=== PATIENT | female | born 1985 | race Caucasian/White ===

== ENCOUNTER 2020-10-09 17:42 | Observation (INO) ==
[2020-10-09] MEDS ORDERED: Isovue-370 500 ML BOTTLE IVP ONE (19:40)
[2020-10-09] MEDS ORDERED: *HR* FentaNYL (PF) 100 MCG/2 ML VIAL IVP ONE (19:40)
[2020-10-09] MEDS ORDERED: 0.9 % Sodium Chloride 1,000 ML IVC STA (19:40)
[2020-10-09] MEDS ORDERED: Ondansetron 4 MG/2 ML VIAL IVP STA ×2 (19:40→22:45)
[2020-10-09] MEDS ORDERED: Pantoprazole 40 MG VIAL IVP ONE (19:58)
[2020-10-09 20:42] LABS: Basophils # 0.1 K/mcL (0.0-0.2); Basophils % 0.6 %; Eosinophils # 0.2 K/mcL (0.0-0.6); Eosinophils % 1.4 %; Hematocrit 47.3 % (35.3-44.9); Hemoglobin 16.2 g/dL (11.5-15.4); Immature Granulocytes % 0.2 % (0-4); Lymphocytes # 3.3 K/mcL (0.6-4.6); Lymphocytes % 27.1 %; Mean Corpuscular HGB Conc 34.2 g/dL (31.6-35.5); Mean Corpuscular Volume 93.3 fL (83.0-100.0); Mean Platelet Volume 10.2 fL (9.4-12.4); Monocytes % 7.8 %; Platelet Count 470 K/mcL (140-400); Red Blood Count 5.07 M/mcL (3.82-4.97); Red Cell Distribution Width 13.2 % (11.5-14.5); Segmented Neutrophils % 62.9 %; White Blood Count 12.2 K/mcL (4.3-11.1)
[2020-10-09 20:45] LABS: Neutrophils # 7.7 K/mcL (1.6-8.9)
[2020-10-09 21:02] LABS: Platelet Estimate Normal (Normal)
[2020-10-09 21:12] LABS: Alanine Aminotransferase 13 Units/L (7-52); Albumin 4.2 g/dL (3.5-5.7); Albumin/Globulin Ratio 1.2 (1.1-2.2); Alkaline Phosphatase 99 Units/L (34-104); Aspartate Amino Transferase 16 Units/L (13-39); BUN/Creatinine Ratio 9 (6-26); Bilirubin,Direct 0.1 mg/dL (0.0-0.2); Bilirubin,Indirect 0.3 mg/dL (0.0-1.0); Bilirubin,Total 0.4 mg/dL (0.3-1.0); Blood Urea Nitrogen 6 mg/dL (6-20); Calcium 9.5 mg/dL (8.6-10.3); Carbon Dioxide 31 mEq/L (23-29); Chloride 95 mEq/L (98-107); Globulin 3.6 g/dL (2.4-3.5); Glucose 89 mg/dL (70-105); Lipase 4 Units/L (11-82); Osmolality,Calculated 275 (280-300); Sodium 134 mEq/L (136-145); Total Protein 7.8 g/dL (6.4-8.9); eGFR For African Americans > 60 (> 60); eGFR For Non-African Americans > 60 (> 60)
[2020-10-09] MEDS ORDERED: GI Cocktail 40 ML EACH PO ONE (23:49)
[2020-10-10] MEDS ORDERED: Potassium Effervescent 25 MEQ TABLET.EFF PO ONE (00:32)
[2020-10-10] MEDS ORDERED: *HR* FentaNYL (PF) 100 MCG/2 ML VIAL IVP ONE (01:33)
[2020-10-10] MEDS ORDERED: Naloxone 0.4 MG/ML INJ IVP PRN (09:20)
[2020-10-10] MEDS: Ondansetron 4 MG/2 ML VIAL IVP PRN ×2 (10:43→18:44)
[2020-10-10] MEDS: Acetaminophen 325 MG TABLET PO PRN (10:43)
[2020-10-10] MEDS: 0.9 % Sodium Chloride 1,000 ML IVC SCH ×2 (12:16→18:24)
[2020-10-10] MEDS: Prochlorperazine 10 MG/2 ML VIAL IVP PRN ×2 (14:02→20:02)
[2020-10-10] MEDS: *HR* FentaNYL (PF) 100 MCG/2 ML VIAL IVP PRN ×2 (15:33→21:46)
[2020-10-10] MEDS: Pantoprazole 40 MG VIAL IVP SCH (18:33)
[2020-10-10] MEDS: carBAMazepine 200 MG TABLET PO SCH (23:00)
[2020-10-10] MEDS ORDERED: Acetaminophen IV 1,000 MG/100 ML BAG IVPB ONE (23:07)
[2020-10-11] MEDS: 0.9 % Sodium Chloride 1,000 ML IVC SCH ×3 (02:30→18:38)
[2020-10-11 04:54] LABS: Mean Corpuscular Volume 97.1 fL (83.0-100.0); Mean Platelet Volume 11.1 fL (9.4-12.4); Platelet Count 405 K/mcL (140-400); Red Blood Count 3.81 M/mcL (3.82-4.97); Red Cell Distribution Width 13.6 % (11.5-14.5)
[2020-10-11 05:06] LABS: Hemoglobin 12.2 g/dL (11.5-15.4)
[2020-10-11 05:10] LABS: BUN/Creatinine Ratio 8 (6-26); Blood Urea Nitrogen 5 mg/dL (6-20); Calcium 7.7 mg/dL (8.6-10.3); Carbon Dioxide 26 mEq/L (23-29); Chloride 108 mEq/L (98-107); Glucose 84 mg/dL (70-105); Magnesium 1.8 mg/dL (1.6-2.6); Osmolality,Calculated 282 (280-300); Potassium 3.7 mEq/L (3.5-5.1); Sodium 138 mEq/L (136-145); eGFR For African Americans > 60 (> 60); eGFR For Non-African Americans > 60 (> 60)
[2020-10-11] MEDS: Acetaminophen 325 MG TABLET PO PRN (05:31)
[2020-10-11] MEDS: Pantoprazole 40 MG VIAL IVP SCH ×2 (05:34→16:45)
[2020-10-11] MEDS: *HR* Enoxaparin 40 MG/0.4 ML SYRINGE SQ SCH (05:34)
[2020-10-11] MEDS: Prochlorperazine 10 MG/2 ML VIAL IVP PRN ×2 (05:34→20:54)
[2020-10-11] MEDS ORDERED: NON-FORMULARY MEDICATION 1 EACH EACH (Duloxetine Hcl [Cymbalta] 60 MG Capsule.Dr) PO SCH (09:00)
[2020-10-11] MEDS: ARIPiprazole 10 MG TABLET PO SCH (09:08)
[2020-10-11] MEDS: carBAMazepine 200 MG TABLET PO SCH ×2 (09:08→20:57)
[2020-10-11] MEDS: *HR* HYDROmorphone 2 MG/ML SYRINGE IVP PRN ×3 (10:19→20:55)
[2020-10-11] MEDS: Ondansetron 4 MG/2 ML VIAL IVP PRN ×2 (14:25→23:13)
[2020-10-12] MEDS: 0.9 % Sodium Chloride 1,000 ML IVC SCH ×3 (02:32→17:56)
[2020-10-12] MEDS ORDERED: Acetaminophen IV 1,000 MG/100 ML BAG IVPB ONE (04:40)
[2020-10-12] MEDS ORDERED: Ondansetron 4 MG/2 ML VIAL IVP PRN (04:40)
[2020-10-12] MEDS: Pantoprazole 40 MG VIAL IVP SCH ×2 (05:04→17:55)
[2020-10-12] MEDS: *HR* Enoxaparin 40 MG/0.4 ML SYRINGE SQ SCH (08:35)
[2020-10-12] MEDS: carBAMazepine 200 MG TABLET PO SCH ×2 (08:36→20:37)
[2020-10-12] MEDS: ARIPiprazole 10 MG TABLET PO SCH (08:36)
[2020-10-12] MEDS: Acetaminophen 325 MG TABLET PO PRN (08:36)
[2020-10-12] MEDS: Ondansetron 4 MG/2 ML VIAL IVP PRN ×2 (11:48→20:37)
[2020-10-12] MEDS: *HR* HYDROmorphone 2 MG/ML SYRINGE IVP PRN ×2 (12:52→23:31)
[2020-10-12] MEDS: Prochlorperazine 10 MG/2 ML VIAL IVP PRN (15:40)
[2020-10-13] MEDS: 0.9 % Sodium Chloride 1,000 ML IVC SCH ×2 (01:52→08:29)
[2020-10-13] MEDS: *HR* HYDROmorphone 2 MG/ML SYRINGE IVP PRN ×2 (03:40→08:32)
[2020-10-13] MEDS: Pantoprazole 40 MG VIAL IVP SCH (05:50)
[2020-10-13] MEDS: *HR* Enoxaparin 40 MG/0.4 ML SYRINGE SQ SCH (05:51)
[2020-10-13 06:41] VITALS: BP 99/67
[2020-10-13] MEDS: carBAMazepine 200 MG TABLET PO SCH (08:33)
[2020-10-13] MEDS: ARIPiprazole 10 MG TABLET PO SCH (08:33)
== END 2020-10-13 09:25 | disposition short-term general hospital (02) ==
LOC: EMEROOARM 17:42 → 3ANU 17:42 → SUATTDRO 10-10 08:43 → 3ANU 10-10 10:18
PROVIDERS: ADMIT Internal Medicine; ATTEND Internal Medicine